=== PATIENT | male | born 1970 | race Caucasian/White ===

== ENCOUNTER 2018-03-18 22:42 | Emergency (ER) | payer OTHER ==
[~2018-03-18] VITALS: Ht 172.7 cm; Wt 90.7 kg
[~2018-03-18 22:42] MED LIST: ALBU90OI INH; AMOCLA875 PO; BENZ100A PO; CODACE30 PO; CRUTCH4 USE; Flonase 0.05% N16 GM; IBUP800 PO; LEVSOD50 PO; META800 PO; NAPR500 PO; OXYACE7.5T PO; PARO10; PROACE100 PO; PRODEXEL PO; PSEU120ER PO; Prednisone20 MG PO; Prednisone50 MG PO; SULTRIDS PO; Zithromax250 MG PO; [UNRECOGNIZED DRUG - REMARK]
[2018-03-19 00:57] LABS: BASOPHILS ABSOLUTE AUTO 0.06 K/mm3 (0.00-0.23); BASOPHILS PERCENT AUTO 1 % (0-2); EOSINOPHILS ABSOLUTE AUTO 0.38 K/mm3 (0.00-0.68); EOSINOPHILS PERCENT AUTO 5 % (0-6); Hematocrit 47.7 % (37.0-53.0); Hemoglobin 15.4 g/dL (13.5-17.5); IMMATURE GRAN ABSOLUTE AUTO 0.02 K/mm3 (0.00-0.10); IMMATURE GRAN PERCENT AUTO 0 % (0-1); LYMPHOCYTES ABSOLUTE AUTO 3.99 K/mm3 (0.84-5.20); LYMPHOCYTES PERCENT AUTO 49 % (21-46); MONOCYTES ABSOLUTE AUTO 0.88 K/mm3 (0.16-1.47); MONOCYTES PERCENT AUTO 11 % (4-13); Mean Corpuscular HGB 28.4 pg (26.0-34.0); Mean Corpuscular HGB Conc 32.3 g/dL (31.5-36.5); Mean Corpuscular Volume 88 fL (80-100); Mean Platelet Volume 9.2 fL (9.1-12.4); NEUTROPHILS PERCENT AUTO 35 % (41-73); Platelet Count 338 K/mm3 (150-400); RDW Coefficient Variation 12.1 % (11.7-14.2); RDW Standard Deviation 39.6 fL (35.1-46.3); Red Blood Cell Count 5.42 M/mm3 (4.30-5.90); White Blood Cell Count 8.23 K/mm3 (4.00-11.30)
[2018-03-19 01:22] LABS: Alanine Aminotransfer (ALT/SGP 38 U/L (12-78); Albumin, Blood 3.4 g/dL (3.4-5.0); Albumin/Globulin Ratio 0.8 (0.8-1.8); Alk Phos 158 U/L (50-136); Anion Gap 8 mmol/L (6-16); Aspartate Aminotrans (AST/SGOT 21 U/L (12-37); Bilirubin, Total 0.2 mg/dL (0.1-1.0); Blood Urea Nitrogen 12 mg/dL (8-24); Bun/Creatinine Ratio 17.6 (12.0-20.0); CO2, Blood 25 mmol/L (21-32); Chloride, Blood 110 mmol/L (98-108); Creatinine, Blood 0.68 mg/dL (0.60-1.20); Globulin, Blood 4.2 g/dL (2.2-4.0); Glomerular Filtration Rate >60 (60-); Glucose, Blood 104 mg/dL (70-99); Potassium, Blood 3.9 mmol/L (3.5-5.5); Sodium, Blood 143 mmol/L (136-145); Total Protein, Blood 7.6 g/dL (6.4-8.2); Troponin I <0.015 ng/mL (0.000-0.040)
[2018-03-19] MEDS ORDERED: Prednisone20 MG PO (02:41)
== END 2018-03-19 03:02 | disposition home or self-care (01) ==
LOC: ER 22:42
PROVIDERS: Emergency Medicine
DX: J44.1 Chronic obstructive pulmonary disease with (acute) exacerbation (principal); Z79.52 Long term (current) use of systemic steroids; F17.200 Nicotine dependence, unspecified, uncomplicated
CPT/HCPCS: 71046; 80053; 83880; 84484; 85025; 93005; 93010; 94640; 99285-25

== ENCOUNTER 2019-11-04 06:59 | Day surgery (SDC) | payer OTHER ==
[~2019-11-04] VITALS: Ht 172.7 cm; Wt 95.5 kg
--- NOTE | 2019-11-04 13:50 | NUR ---
11/04/19 1350 [place] LATE ENTRY: 1 MG EPI ADDED TO EACH OF THE FIRST 3 BAGS OF LR FOR IRRIGATION.
== END 2019-11-04 11:49 | disposition home or self-care (01) ==
LOC: ORSCSDS 06:59
PROVIDERS: Orthopaedic Surgery
PROC: 0RNK4ZZ Release Left Shoulder Joint, Percutaneous Endoscopic Approach (ICD-10-PCS; principal; 2019-11-04 08:30)
PROC: 0LQ24ZZ Repair Left Shoulder Tendon, Percutaneous Endoscopic Approach (ICD-10-PCS; principal; 2019-11-04 08:30)
PROC: 0LS44ZZ Reposition Left Upper Arm Tendon, Percutaneous Endoscopic Approach (ICD-10-PCS; principal; 2019-11-04 08:30)
DX: M75.122 Complete rotator cuff tear or rupture of left shoulder, not specified as traumatic (principal); M75.22 Bicipital tendinitis, left shoulder; M75.52 Bursitis of left shoulder; M75.42 Impingement syndrome of left shoulder; I10 Essential (primary) hypertension; J44.9 Chronic obstructive pulmonary disease, unspecified; Z79.899 Other long term (current) drug therapy; E03.9 Hypothyroidism, unspecified
CPT/HCPCS: 93005; 93010; A9270-GY; C1713; J0171; J0690; J1100; J1885; J2250; J2370; J2405; J2704; J2710; J3010; J7120

== ENCOUNTER 2020-11-23 09:31 | Inpatient (IN) | payer SELFPAY ==
[~2020-11-23] VITALS: Ht 172.7 cm; Wt 100.0 kg
[~2020-11-23 09:31] MED LIST changes: -ACET325; -ASPI81CH PO; -ATOR40TA PO; -CLOP75 PO; -HYDROCODONE-AC1 EA14 PO; -METO25ER PO; -ONDA4ODT MM; -Prinivil10 MG PO
[2020-11-23] MEDS ORDERED: HYDROCODONE-AC1 EA14 PO ×2 (09:48)
[2020-11-23 10:04] LABS: International Normalized Ratio 0.99; Prothrombin Time Results 10.4 Sec (9.7-11.5)
[2020-11-23 11:35] LABS: SARS-Cov-2 (COVID-19) PCR, MMC NEGATIVE (NEGATIVE)
[2020-11-23 12:46] LABS: Cholesterol 174 mg/dL (50-200); HDL Cholesterol 58 mg/dL (>39); LDL/HDL RATIO 1.7; Low Density Lipoprotein Chol 97 mg/dL (0-110); Triglycerides 96 mg/dL (30-160); Very Low Density Lipoprot Chol 19 mg/dL (6-32)
--- NOTE | 2020-11-23 14:30 | NUR ---
INITIAL ASSESSMENT: Patient [facility] the [facility] to PCU 04. Patient started to have chest pain last night, he describes as the, "worst heart burn ever." His gave him an asprin and he went back to sleep. He continued to have chest pain this AM so he was subsequently brought to the ER. Patient then went to the pathology lab technician, 2 sents to the proximal OM. TR band to the right wrist, 11cc of air per Blaise RN. Site looks good, no oozing noted, good pleth, pt denies N/t arm board in place. Pt is alert and oriented denies CP or SOB at this time. HRR, SR in the 60s per special procedures technologist. LS dim in the bases, Biox wnl on RA. BT+. PPP. VSS. Pt oriented to room and call light. Call light in reach, will continue to monitor.
--- NOTE | 2020-11-23 18:17 | NUR ---
SUMMARY: Patient was admitted today at 1530, came into the ER for chest pain. The patient went to the labor commissioner and two stents were placed. TR band to right wrist, initially had 11 cc air, 4 cc have been removed with out difficulty. Patient has been hypertensive, Dr. Rea aware-see new orders. Patient is currently resting comfortably, no chest pain post cath. Will report to oncoming RN.
--- NOTE | 2020-11-23 20:22 | NUR ---
SCANNER NOT WORKING 2099 MEDICATIONS VERIFIED WITH GEORGIE DIAZ RN
[2020-11-23 21:40] LABS: U Amphetamine Screen Not Detected; U Barbituate Screen Not Detected; U Benzodiazapine Screen Not Detected; U Buprenorphine Screen Not Detected; U Cannabinoids Screen Not Detected; U Cocaine Screen Not Detected; U Methadone Screen Not Detected; U Methamphetamine Screen Not Detected; U Opiates Screen Not Detected; U Oxycodone Screen Not Detected; U Phencyclidine Screen Not Detected; U Propoxyphene Screen Not Detected
--- NOTE | 2020-11-23 22:00 | NUR ---
PATIENT IS ALERT AND ORIENTATED ABLE TO MAKE NEEDS KNOWN TR BAND IN PLACE, DEFLATED NOTED HARD NODULE PROXIMAL TO TR BAND WILL KEEP IN PLACE FOR A LITTLE WHILE LONGER PRIOR TO MOVING, PATIENT IS AMBULATORY WALKING THE HALLWAY, FLUIDS ARE RUNNING AND TROPONINS ARE TRENDING DOWN.
--- NOTE | 2020-11-23 22:23 | NUR ---
TR BAND REMOVED
[2020-11-24 06:34] LABS: BASOPHILS ABSOLUTE AUTO 0.03 K/mm3 (0.00-0.23); BASOPHILS PERCENT AUTO 0 % (0-2); EOSINOPHILS ABSOLUTE AUTO 0.19 K/mm3 (0.00-0.68); EOSINOPHILS PERCENT AUTO 3 % (0-6); Hematocrit 33.4 % (37.0-53.0); Hemoglobin 10.9 g/dL (13.5-17.5); IMMATURE GRAN ABSOLUTE AUTO 0.03 K/mm3 (0.00-0.10); IMMATURE GRAN PERCENT AUTO 0 % (0-1); LYMPHOCYTES ABSOLUTE AUTO 1.61 K/mm3 (0.84-5.20); LYMPHOCYTES PERCENT AUTO 23 % (21-46); MONOCYTES ABSOLUTE AUTO 0.67 K/mm3 (0.16-1.47); MONOCYTES PERCENT AUTO 10 % (4-13); Mean Corpuscular HGB 28.8 pg (26.0-34.0); Mean Corpuscular HGB Conc 32.6 g/dL (31.5-36.5); Mean Corpuscular Volume 88 fL (80-100); Mean Platelet Volume 9.3 fL (9.1-12.4); NEUTROPHILS ABSOLUTE AUTO 4.45 K/mm3 (1.96-9.15); NEUTROPHILS PERCENT AUTO 64 % (41-73); Platelet Count 237 K/mm3 (150-400); RDW Coefficient Variation 11.9 % (11.7-14.2); RDW Standard Deviation 38.5 fL (35.1-46.3); Red Blood Cell Count 3.78 M/mm3 (4.30-5.90); White Blood Cell Count 6.98 K/mm3 (4.00-11.30)
[2020-11-24 06:57] LABS: Alanine Aminotransfer (ALT/SGP 53 U/L (12-78); Albumin/Globulin Ratio 0.7 (0.8-1.8); Alk Phos 102 U/L (50-136); Anion Gap 5 mmol/L (6-16); Aspartate Aminotrans (AST/SGOT 66 U/L (12-37); Bilirubin, Total 0.5 mg/dL (0.1-1.0); Blood Urea Nitrogen 12 mg/dL (8-24); CO2, Blood 26 mmol/L (21-32); Calcium, Blood 8.3 mg/dL (8.5-10.1); Chloride, Blood 108 mmol/L (98-108); Creatinine, Blood 0.67 mg/dL (0.60-1.20); Globulin, Blood 4.1 g/dL (2.2-4.0); Glomerular Filtration Rate >60 (60-); Glucose, Blood 100 mg/dL (70-99); Magnesium, Blood 2.3 mg/dL (1.6-2.4); Potassium, Blood 4.1 mmol/L (3.5-5.5); Sodium, Blood 139 mmol/L (136-145); Total Protein, Blood 7.1 g/dL (6.4-8.2)
--- NOTE | 2020-11-24 08:15 | NUR ---
ASSUMPTION OF CARE NOTE PT IS ALERT AND ORIENTED X 4. HE IS PLEASANT AND COOPERATIVE W/ CARE. RIGHT RADIAL ANGIO ACCESS SITE IS COVERED W/ TRANSPARENT DRESSING AND IS DRY, CLEAN, AND INTACT. PT IS ON TELE AND IS SINUS ARRYTHMIA; INSPIRATION 73, EXPIRATION 54 PER TELE REPORT. ENZO ON MONITORS. SBP THIS AM IN 130'S. PT DENIED CHEST PAIN/PRESSURE. PT REPORTED RIGHT ROTATOR CUFF IS TORN BUT DENIED PAIN. LEFT IV IN AC IS RUNNING NS @ 100ML/HR. CALL LIGHT IN REACH, WILL CONTINUE TO MONITOR.
--- NOTE | 2020-11-24 11:00 | NUR ---
Discussed ways to increase fiber, whole grains, and healthy fats in the diet. Discussed ways to decrease salt, saturated fat, and added sugar in the diet. Discussed sources of sodium and ways to limit. Pt was eager to try specific changes discussed and reported has updated their kitchen contents in preperation for following a more heart healthy diet upon discharge.
[2020-11-24] MEDS ORDERED: ASPI81CH PO ×2 (11:29)
[2020-11-24] MEDS ORDERED: ACET325 ×2 (11:29)
[2020-11-24] MEDS ORDERED: ATOR40TA PO ×2 (11:30)
[2020-11-24] MEDS ORDERED: CLOP75 PO ×2 (11:30)
[2020-11-24] MEDS ORDERED: Prinivil10 MG PO ×2 (11:31)
[2020-11-24] MEDS ORDERED: METO25ER PO ×2 (11:32)
[2020-11-24] MEDS ORDERED: ONDA4ODT MM ×2 (11:33)
--- NOTE | 2020-11-24 12:32 | NUR ---
DISCHARGE NOTE PT WAS ALERT AND ORIENTED X4. VITAL SIGNS WERE STABLE UPON DISCHARGE. RIGHT RADIAL SITE REMAINED COVERED W/ CHG DRESSING, DRESSING WAS DRY/CEAN/INTACT. PT AMBULATED ON OWN AND LEFT ROOM APPROX. 1150 ACCOMPANIED BY THIS NURSE TO [facility] WHERE WE MET THE PATIENTS TO GO OVER DISCHARGE INSTRUCTIOS. THIS NURSE INSTRUCTED PT AND PT ABOUT FOLLOW UP APPOINTMENTS W/ PCP AND CARDIOLOGY. PT AND PATIENT ALSO EDUCATED ABOUT POST ANGIO CARE INCLUDING CARE OF ACCESS SITE. PT INSTRUCTED ON NOT DRIVING UNITL AFTER FOLLOW UP APPOINTMENT W/ PCP, NEW MEDICATION EDUCATION ALSO GIVEN W/ WRITTEN INSTRUCTIONS. MEDICATIONS SENT TO [facility] AND PT NOTIFIED.
== END 2020-11-24 12:07 | disposition home or self-care (01) | DRG 247 ==
LOC: ER 09:31 → PCU 12:14
PROVIDERS: Emergency Medicine; Internal Medicine Cardiovascular Disease; Nurse Practitioner Acute Care; ADMIT Family Medicine
PROC: 027035Z Dilation of Coronary Artery, One Artery with Two Drug-eluting Intraluminal Devices, Percutaneous Approach (ICD-10-PCS; principal; 2020-11-23)
PROC: 4A023N7 Measurement of Cardiac Sampling and Pressure, Left Heart, Percutaneous Approach (ICD-10-PCS; 2020-11-23)
PROC: B2111ZZ Fluoroscopy of Multiple Coronary Arteries using Low Osmolar Contrast (ICD-10-PCS; 2020-11-23)
DX: I21.4 Non-ST elevation (NSTEMI) myocardial infarction (principal); I25.10 Atherosclerotic heart disease of native coronary artery without angina pectoris; Z20.822 Contact with and (suspected) exposure to COVID-19; E03.9 Hypothyroidism, unspecified; J44.9 Chronic obstructive pulmonary disease, unspecified; Z98.890 Other specified postprocedural states; Z90.49 Acquired absence of other specified parts of digestive tract; Z87.891 Personal history of nicotine dependence
CPT/HCPCS: 36415; 71045; 76937; 80053; 80061; 83036; 83735; 83880; 84439; 84484; 85025; 85347; 85520; 85610; 85730; 93005; 93010; 93454; 93571; 96374; 99152; 99153; 99285-25; A9270; C1725; C1769; C1874; C1887; C1894; C8929; C9600; C9601; J1644; J2250; J2370; J3010; J7030; J7050; Q9957; Q9967; U0004

== ENCOUNTER → 2020-11-23 | Outpatient (CLI) | payer SELFPAY ==
[~2020-11-23] MED LIST changes: +ACET325; +ASPI81CH PO; +ATOR40TA PO; +CLOP75 PO; +HYDROCODONE-AC1 EA14 PO; +METO25ER PO; +ONDA4ODT MM; +Prinivil10 MG PO
[2020-11-23 08:42] LABS: BASOPHILS ABSOLUTE AUTO 0.07 K/mm3 (0.00-0.23); BASOPHILS PERCENT AUTO 1 % (0-2); EOSINOPHILS ABSOLUTE AUTO 0.25 K/mm3 (0.00-0.68); EOSINOPHILS PERCENT AUTO 3 % (0-6); Hematocrit 47.2 % (37.0-53.0); Hemoglobin 15.6 g/dL (13.5-17.5); IMMATURE GRAN ABSOLUTE AUTO 0.04 K/mm3 (0.00-0.10); IMMATURE GRAN PERCENT AUTO 0 % (0-1); LYMPHOCYTES ABSOLUTE AUTO 2.51 K/mm3 (0.84-5.20); LYMPHOCYTES PERCENT AUTO 27 % (21-46); MONOCYTES PERCENT AUTO 9 % (4-13); Mean Corpuscular HGB 28.4 pg (26.0-34.0); Mean Corpuscular HGB Conc 33.1 g/dL (31.5-36.5); Mean Corpuscular Volume 86 fL (80-100); Mean Platelet Volume 8.8 fL (9.1-12.4); NEUTROPHILS ABSOLUTE AUTO 5.58 K/mm3 (1.96-9.15); NEUTROPHILS PERCENT AUTO 60 % (41-73); Platelet Count 331 K/mm3 (150-400); RDW Coefficient Variation 11.9 % (11.7-14.2); RDW Standard Deviation 37.4 fL (35.1-46.3); Red Blood Cell Count 5.49 M/mm3 (4.30-5.90); White Blood Cell Count 9.25 K/mm3 (4.00-11.30)
[2020-11-23 09:07] LABS: Alanine Aminotransfer (ALT/SGP 65 U/L (12-78); Albumin, Blood 3.6 g/dL (3.4-5.0); Albumin/Globulin Ratio 0.8 (0.8-1.8); Alk Phos 110 U/L (40-126); Anion Gap 9 mmol/L (6-16); Aspartate Aminotrans (AST/SGOT 108 U/L (12-37); Bilirubin, Total 0.2 mg/dL (0.1-1.0); Blood Urea Nitrogen 19 mg/dL (8-24); Bun/Creatinine Ratio 23.5 (12.0-20.0); CO2, Blood 27 mmol/L (21-32); Calcium, Blood 8.3 mg/dL (8.5-10.1); Chloride, Blood 106 mmol/L (98-108); Creatinine, Blood 0.81 mg/dL (0.60-1.20); Globulin, Blood 4.4 g/dL (2.2-4.0); Glomerular Filtration Rate >60 (60-); Glucose, Blood 101 mg/dL (70-99); Potassium, Blood 4.4 mmol/L (3.5-5.5); Sodium, Blood 142 mmol/L (136-145); Troponin I 34.009 ng/mL (0.000-0.040)
== END | disposition home or self-care (01) ==
LOC: LAB 08:37 → LAB SHORT 08:37
PROVIDERS: Family Medicine
DX: R07.89 Other chest pain (principal); M41.9 Scoliosis, unspecified; Q76.5 Cervical rib
CPT/HCPCS: 80053; 84484; 85025

== ENCOUNTER 2020-12-28 07:13 | Emergency (ER) | payer SELFPAY ==
[~2020-12-28] VITALS: Ht 172.7 cm; Wt 99.8 kg
[~2020-12-28 07:13] MED LIST changes: +ACET325; +ASPI81CH PO; +ATOR40TA PO; +CLOP75 PO; +HYDROCODONE-AC1 EA14 PO; +METO25ER PO; +ONDA4ODT MM; +Prinivil10 MG PO
[2020-12-28 07:52] LABS: BASOPHILS ABSOLUTE AUTO 0.05 K/mm3 (0.00-0.23); BASOPHILS PERCENT AUTO 1 % (0-2); EOSINOPHILS ABSOLUTE AUTO 0.33 K/mm3 (0.00-0.68); EOSINOPHILS PERCENT AUTO 4 % (0-6); Hematocrit 42.7 % (37.0-53.0); Hemoglobin 14.1 g/dL (13.5-17.5); IMMATURE GRAN ABSOLUTE AUTO 0.02 K/mm3 (0.00-0.10); IMMATURE GRAN PERCENT AUTO 0 % (0-1); LYMPHOCYTES ABSOLUTE AUTO 1.85 K/mm3 (0.84-5.20); LYMPHOCYTES PERCENT AUTO 24 % (21-46); MONOCYTES ABSOLUTE AUTO 0.71 K/mm3 (0.16-1.47); MONOCYTES PERCENT AUTO 9 % (4-13); Mean Corpuscular HGB 28.4 pg (26.0-34.0); Mean Corpuscular Volume 86 fL (80-100); Mean Platelet Volume 9.1 fL (9.1-12.4); NEUTROPHILS ABSOLUTE AUTO 4.66 K/mm3 (1.96-9.15); NEUTROPHILS PERCENT AUTO 61 % (41-73); Platelet Count 327 K/mm3 (150-400); RDW Coefficient Variation 11.9 % (11.7-14.2); RDW Standard Deviation 37.4 fL (35.1-46.3); Red Blood Cell Count 4.96 M/mm3 (4.30-5.90); White Blood Cell Count 7.62 K/mm3 (4.00-11.30)
[2020-12-28 08:11] LABS: Alanine Aminotransfer (ALT/SGP 60 U/L (12-78); Albumin, Blood 3.2 g/dL (3.4-5.0); Albumin/Globulin Ratio 0.8 (0.8-1.8); Alk Phos 109 U/L (50-136); Anion Gap 4 mmol/L (6-16); Aspartate Aminotrans (AST/SGOT 22 U/L (12-37); Bilirubin, Total 0.3 mg/dL (0.1-1.0); Blood Urea Nitrogen 15 mg/dL (8-24); Bun/Creatinine Ratio 21.1 (12.0-20.0); CO2, Blood 27 mmol/L (21-32); Calcium, Blood 8.7 mg/dL (8.5-10.1); Chloride, Blood 110 mmol/L (98-108); Creatinine, Blood 0.71 mg/dL (0.60-1.20); Glomerular Filtration Rate >60 (60-); Glucose, Blood 91 mg/dL (70-99); Potassium, Blood 4.1 mmol/L (3.5-5.5); Sodium, Blood 141 mmol/L (136-145); Total Protein, Blood 7.2 g/dL (6.4-8.2); Troponin I <0.015 ng/mL (0.000-0.040)
== END 2020-12-28 10:53 | disposition home or self-care (01) ==
LOC: ER 07:13
PROVIDERS: Emergency Medicine
DX: R07.89 Other chest pain (principal); J44.9 Chronic obstructive pulmonary disease, unspecified; E03.9 Hypothyroidism, unspecified; I25.2 Old myocardial infarction; Z87.891 Personal history of nicotine dependence; Z79.82 Long term (current) use of aspirin; Z79.899 Other long term (current) drug therapy
CPT/HCPCS: 36415; 80053; 83880; 84484; 85025; 93005; 93010; 99285-25; A9270

== ENCOUNTER 2021-03-06 13:13 | Emergency (ER) | payer OTHER ==
[~2021-03-06] VITALS: Ht 172.7 cm; Wt 99.8 kg
[2021-03-06] MEDS ORDERED: Percocet 5-3251 EACH PO ×2 (16:01→16:16)
== END 2021-03-06 16:25 | disposition home or self-care (01) ==
LOC: ER 13:13
DX: K42.9 Umbilical hernia without obstruction or gangrene (principal); Z79.899 Other long term (current) drug therapy; Z79.82 Long term (current) use of aspirin; Z79.02 Long term (current) use of antithrombotics/antiplatelets; Z87.891 Personal history of nicotine dependence
CPT/HCPCS: 74177; A9270; J1885; J3010; Q9967